=== PATIENT | male | born 1995 | race Caucasian/White ===

== ENCOUNTER 2020-12-08 18:04 | Emergency (ER) | payer SELFPAY ==
[~2020-12-08] VITALS: Ht 182.9 cm; Wt 70.3 kg
[2020-12-08 18:08] VITALS: BP 137/81
[2020-12-08] MEDS ORDERED: KETOROLAC TROMETH 60MG/2ML VIAL IM ONE (20:00)
== END 2020-12-08 20:10 | disposition home or self-care (01) ==
LOC: ER 18:04
DX: S16.1XXA Strain of muscle, fascia and tendon at neck level, initial encounter (principal); F12.10 Cannabis abuse, uncomplicated; X58.XXXA Exposure to other specified factors, initial encounter; Y93.89 Activity, other specified; Y92.89 Other specified places as the place of occurrence of the external cause; Y99.8 Other external cause status
CPT/HCPCS: 72040; 96372; 99283; J1885

== ENCOUNTER 2023-03-23 14:32 | Emergency (ER) | payer SELFPAY ==
[~2023-03-23] VITALS: Ht 185.4 cm; Wt 75.0 kg
[2023-03-23 15:06] VITALS: PULSE 66; RESP 18; O2SAT 98
[2023-03-23 15:21] LABS: Basophils # (auto) 0 10 ^3/uL (0-0.2); Basophils % (auto) 0.5 % (0.0-2.0); Eosinophils # (auto) 0.1 10 ^3/uL (0-0.8); Eosinophils % (auto) 1.7 % (0.0-7.0); Hematocrit 47.3 % (41.0-53.0); Hemoglobin 15.8 g/dL (13.5-17.5); Lymphocytes % (auto) 13.6 % (10.0-50.0); Mean Corpuscular Hemoglobin 29.9 pg (28.0-32.0); Mean Corpuscular Hgb Conc. 33.5 g/dL (32.0-36.0); Mean Corpuscular Volume 89.2 fL (80.0-100.0); Monocytes # (auto) 0.4 10 ^3/uL (0-1.3); Monocytes % (auto) 5.4 % (0.0-12.0); Neutrophils # (auto) 5.9 10 ^3/uL (1.6-8.6); Neutrophils % (auto) 78.8 % (37.0-80.0); Red Cell Distribution Width 12.8 % (11.8-14.3); White Blood Cell 7.5 10^3/uL (4.4-10.8)
[2023-03-23 15:41] LABS: Albumin 4.3 g/dL (3.4-5.0); Anion Gap 5 (5-15); Blood Urea Nitrogen 8 mg/dL (7-18); Calcium 8.8 mg/dL (8.5-10.1); Carbon Dioxide 23 mmol/L (21-32); Chloride 113 mmol/L (98-107); Glucose 98 mg/dL (74-106); Magnesium 3.1 mg/dL (1.6-2.6); Potassium 4.6 mmol/L (3.5-5.1); Sodium 141 mmol/L (136-145)
[2023-03-23 15:45] LABS: Alanine Aminotransferase 20 U/L (16-61); Alkaline Phosphatase 46 U/L (45-117); Aspartate Aminotransferase 14 U/L (15-37); BUN/Creatinine Ratio 8.3 (10.0-20.0); Bilirubin, Total 0.4 mg/dL (0.2-1.0); Blood Alcohol < 3.0 mg/dL (<10); GFR African American 120 mL/min; GFR Non-African American 99 mL/min; Total Protein 7.4 g/dL (6.4-8.2)
[2023-03-23 17:55] VITALS: BP 113/59; PULSE 94; RESP 18; TEMP 98; O2SAT 95
== END 2023-03-23 17:58 | disposition home or self-care (01) ==
LOC: EDBD 14:32 → ER 14:32
DX: R56.9 Unspecified convulsions (principal); F12.10 Cannabis abuse, uncomplicated
CPT/HCPCS: 36415; 70450; 80053; 80320; 83735; 85025

== ENCOUNTER 2023-04-04 14:20 | Inpatient (IN) | payer MEDICAID, OTHER ==
[~2023-04-04] VITALS: Ht 185.4 cm; Wt 84.2 kg
[2023-04-04] MEDS ORDERED: TETANUS-DIPTH-ACEL PERTUSSIS 0.5ML SYR Tdap IM ONE (15:00)
[2023-04-04] MEDS ORDERED: LORazepam 2MG/ML-1ML VIAL IV ONE ×2 (15:30)
[2023-04-04 15:33] LABS: Basophils # (auto) 0 10 ^3/uL (0-0.2); Basophils % (auto) 0.2 % (0.0-2.0); Eosinophils # (auto) 0.1 10 ^3/uL (0-0.8); Eosinophils % (auto) 0.8 % (0.0-7.0); Hematocrit 46.5 % (41.0-53.0); Hemoglobin 15.8 g/dL (13.5-17.5); Lymphocytes # (auto) 0.8 10 ^3/uL (0.4-5.4); Lymphocytes % (auto) 9.4 % (10.0-50.0); Mean Corpuscular Hemoglobin 29.9 pg (28.0-32.0); Mean Corpuscular Hgb Conc. 34.1 g/dL (32.0-36.0); Mean Corpuscular Volume 87.8 fL (80.0-100.0); Monocytes # (auto) 0.5 10 ^3/uL (0-1.3); Monocytes % (auto) 5.3 % (0.0-12.0); Neutrophils # (auto) 7.3 10 ^3/uL (1.6-8.6); Neutrophils % (auto) 84.3 % (37.0-80.0); Nucleated Red Blood Cells % 0.2 %; Red Blood Cells 5.29 10^6/uL (4.5-5.90); Red Cell Distribution Width 12.8 % (11.8-14.3); White Blood Cell 8.7 10^3/uL (4.4-10.8)
[2023-04-04 15:46] LABS: INR 1.06 (0.9-1.15); Prothrombin Time 11.1 sec (9.3-11.8)
[2023-04-04 15:50] LABS: Albumin 4.2 g/dL (3.4-5.0); Calcium 9.1 mg/dL (8.7-10.4); Potassium 4.7 mmol/L (3.5-5.1)
[2023-04-04 15:54] LABS: BUN/Creatinine Ratio 13.2 (10.0-20.0); Bilirubin, Total 0.6 mg/dL (0.2-1.0); Total Protein 7.1 g/dL (6.4-8.2)
[2023-04-04] MEDS ORDERED: NITROGLYCERIN 0.4 MG SL TAB SL PRN (16:45)
[2023-04-04] MEDS ORDERED: MORPHINE SULFATE INJ 2 MG/ml SYRG IV PRN (16:45)
[2023-04-04] MEDS ORDERED: LORazepam 2MG/ML-1ML VIAL IV PRN (18:15)
[2023-04-04] MEDS ORDERED: ASPirin-EC 325mg tab PO ONE (18:15)
[2023-04-04 20:17] VITALS: PULSE 92; RESP 18; O2SAT 95
[2023-04-04] MEDS: ATORVASTATIN 20 MG TAB PO SCH (23:23)
[2023-04-05 00:20] LABS: Urine Bacteria NONE SEEN /hpf (None Seen); Urine Blood Negative /uL (Negative); Urine Clarity HAZY (Clear); Urine Color Yellow (Yellow); Urine Protein, UAD Negative (Negative); Urine Specific Gravity 1.016 (1.001-1.035); Urine Urobilinogen Normal (Negative); Urine WBC 1 /hpf (0 - 3); Urine pH 5.5 (5.0-8.0)
[2023-04-05 01:06] LABS: Alcohol, Urine < 3.0 mg/dL (0-10); Amphetamine Screen, Urine NEGATIVE (NEGATIVE); Cannabinoid Screen, Urine POSITIVE (NEGATIVE)
[2023-04-05 01:13] LABS: Barbiturate Scree,Urine NEGATIVE (NEGATIVE); Benzodiazephine Screen, Urine NEGATIVE (NEGATIVE); Cocaine Screen, Urine NEGATIVE (NEGATIVE); Opiate Scree,Urine NEGATIVE (NEGATIVE); Phencyclidine Screen, Urine NEGATIVE (NEGATIVE)
[2023-04-05] MEDS ORDERED: ACETAMINOPHEN 325 MG TAB PO ONE (02:15)
[2023-04-05 06:11] LABS: Basophils # (auto) 0 10 ^3/uL (0-0.2); Basophils % (auto) 0.4 % (0.0-2.0); Eosinophils # (auto) 0.2 10 ^3/uL (0-0.8); Eosinophils % (auto) 1.9 % (0.0-7.0); Hemoglobin 15.5 g/dL (13.5-17.5); Lymphocytes % (auto) 24.5 % (10.0-50.0); Mean Corpuscular Hemoglobin 30.3 pg (28.0-32.0); Mean Corpuscular Hgb Conc. 34.5 g/dL (32.0-36.0); Mean Corpuscular Volume 87.8 fL (80.0-100.0); Monocytes # (auto) 0.7 10 ^3/uL (0-1.3); Monocytes % (auto) 9.3 % (0.0-12.0); Neutrophils # (auto) 5.1 10 ^3/uL (1.6-8.6); Neutrophils % (auto) 63.9 % (37.0-80.0); Nucleated Red Blood Cells % 0.1 %; Red Blood Cells 5.12 10^6/uL (4.5-5.90); Red Cell Distribution Width 12.8 % (11.8-14.3)
[2023-04-05 06:43] LABS: Potassium 3.9 mmol/L (3.5-5.1)
[2023-04-05 06:49] LABS: Albumin 4.1 g/dL (3.4-5.0); BUN/Creatinine Ratio 15.9 (10.0-20.0)
[2023-04-05 06:52] LABS: Total Protein 6.9 g/dL (6.4-8.2)
[2023-04-05 08:58] VITALS: PULSE 78; RESP 22; O2SAT 96
[2023-04-05 09:08] LABS: Bilirubin, Total 1.7 mg/dL (0.2-1.0)
[2023-04-05] MEDS ORDERED: LORazepam 2MG/ML-1ML VIAL IV PRN (09:30)
[2023-04-05] MEDS: ENOXAPARIN SOD 40 MG/0.4 ML SYRINGE SC SCH (10:52)
[2023-04-05] MEDS: ASPirin-EC 81 mg tab PO SCH (10:52)
[2023-04-05] MEDS ORDERED: ONDANSETRON HCL 4 MG/2 ML VIAL IV PRN (14:30)
[2023-04-05] MEDS: HYDROcodone-ACET 5/325MG TAB PO PRN ×2 (14:45→20:35)
[2023-04-05 16:30] VITALS: BP 135/85; PULSE 90; RESP 21; TEMP 98.2; O2SAT 95
[2023-04-05 16:48] VITALS: PULSE 90; RESP 20; O2SAT 95
[2023-04-05 20:00] VITALS: PULSE 60; PULSE 74; RESP 18; O2SAT 97
[2023-04-05 21:00] VITALS: BP 139/79; PULSE 86; RESP 18; TEMP 98; O2SAT 94
[2023-04-05] MEDS: ATORVASTATIN 20 MG TAB PO SCH (21:21)
[2023-04-06] VITALS (7 sets, daily range): BP systolic 127–140; BP diastolic 78–83; PULSE 64–90; RESP 16–18; TEMP 97.6–98.1; O2SAT 2–97
[2023-04-06 06:18] LABS: Basophils # (auto) 0 10 ^3/uL (0-0.2); Basophils % (auto) 0.4 % (0.0-2.0); Eosinophils # (auto) 0.2 10 ^3/uL (0-0.8); Eosinophils % (auto) 3.6 % (0.0-7.0); Hematocrit 43.2 % (41.0-53.0); Hemoglobin 14.8 g/dL (13.5-17.5); Lymphocytes # (auto) 1.6 10 ^3/uL (0.4-5.4); Lymphocytes % (auto) 26.6 % (10.0-50.0); Mean Corpuscular Hemoglobin 30.1 pg (28.0-32.0); Mean Corpuscular Hgb Conc. 34.3 g/dL (32.0-36.0); Mean Corpuscular Volume 87.8 fL (80.0-100.0); Monocytes # (auto) 0.6 10 ^3/uL (0-1.3); Monocytes % (auto) 10.9 % (0.0-12.0); Neutrophils # (auto) 3.5 10 ^3/uL (1.6-8.6); Neutrophils % (auto) 58.5 % (37.0-80.0); Nucleated Red Blood Cells % 0.1 %; Red Blood Cells 4.92 10^6/uL (4.5-5.90); Red Cell Distribution Width 12.8 % (11.8-14.3); White Blood Cell 5.9 10^3/uL (4.4-10.8)
[2023-04-06 06:31] LABS: Chloride 104 mmol/L (98-107); Potassium 3.7 mmol/L (3.5-5.1); Sodium 139 mmol/L (136-145)
[2023-04-06 06:32] LABS: Anion Gap 7.6 (5-15); Calcium 9.4 mg/dL (8.7-10.4); Carbon Dioxide 27.4 mmol/L (20-30)
[2023-04-06 06:37] LABS: BUN/Creatinine Ratio 9.6 (10.0-20.0); Blood Urea Nitrogen 7 mg/dL (9-23); Glucose 91 mg/dL (74-106)
[2023-04-06] MEDS: ENOXAPARIN SOD 40 MG/0.4 ML SYRINGE SC SCH (08:39)
[2023-04-06] MEDS: ASPirin-EC 81 mg tab PO SCH (08:39)
[2023-04-06] MEDS: HYDROcodone-ACET 5/325MG TAB PO PRN ×2 (08:40→20:09)
[2023-04-06] MEDS: ATORVASTATIN 20 MG TAB PO SCH (21:27)
[2023-04-07 05:05] VITALS: BP 130/88; PULSE 80; RESP 16; TEMP 97.3; O2SAT 96
[2023-04-07 05:54] LABS: Basophils # (auto) 0.1 10 ^3/uL (0-0.2); Basophils % (auto) 0.9 % (0.0-2.0); Eosinophils # (auto) 0.3 10 ^3/uL (0-0.8); Hematocrit 43.3 % (41.0-53.0); Hemoglobin 14.8 g/dL (13.5-17.5); Lymphocytes # (auto) 1.8 10 ^3/uL (0.4-5.4); Lymphocytes % (auto) 30.3 % (10.0-50.0); Mean Corpuscular Hgb Conc. 34.1 g/dL (32.0-36.0); Monocytes # (auto) 0.7 10 ^3/uL (0-1.3); Monocytes % (auto) 11.4 % (0.0-12.0); Neutrophils % (auto) 52.4 % (37.0-80.0); Nucleated Red Blood Cells % 0.2 %; Red Blood Cells 4.93 10^6/uL (4.5-5.90); Red Cell Distribution Width 12.6 % (11.8-14.3); White Blood Cell 5.8 10^3/uL (4.4-10.8)
[2023-04-07 06:02] LABS: Chloride 105 mmol/L (98-107); Potassium 3.8 mmol/L (3.5-5.1); Sodium 140 mmol/L (136-145)
[2023-04-07 06:04] LABS: Calcium 9.6 mg/dL (8.7-10.4)
[2023-04-07 06:08] LABS: BUN/Creatinine Ratio 6.3 (10.0-20.0); Blood Urea Nitrogen 5 mg/dL (9-23); Glucose 96 mg/dL (74-106)
[2023-04-07 08:00] VITALS: PULSE 107
[2023-04-07 08:48] VITALS: BP 118/86; PULSE 74; RESP 18; TEMP 98.2; O2SAT 98
[2023-04-07] MEDS: HYDROcodone-ACET 5/325MG TAB PO PRN (09:36)
[2023-04-07] MEDS: ASPirin-EC 81 mg tab PO SCH (09:36)
[2023-04-07] MEDS: ENOXAPARIN SOD 40 MG/0.4 ML SYRINGE SC SCH (09:36)
[2023-04-07] MEDS ORDERED: LEVE500T40 PO ×2 (10:25→11:17)
[2023-04-07 12:58] VITALS: BP 134/74; PULSE 80; RESP 18; TEMP 98.3; O2SAT 100
== END 2023-04-07 17:07 | disposition home or self-care (01) | DRG 53 ==
LOC: EDBD 14:20 → ER 14:20 → TELE 17:11 → TELE-CENTR 04-05 16:26
PROVIDERS: ADMIT Internal Medicine; ATTEND Student in an Organized Health Care Education/Training Program
PROC: 0HQ1XZZ Repair Face Skin, External Approach (ICD-10-PCS; principal; 2023-04-04)
DX: G40.409 Other generalized epilepsy and epileptic syndromes, not intractable, without status epilepticus (principal); I31.9 Disease of pericardium, unspecified; F12.10 Cannabis abuse, uncomplicated; S01.81XA Laceration without foreign body of other part of head, initial encounter; W18.39XA Other fall on same level, initial encounter; Y93.89 Activity, other specified; Z79.899 Other long term (current) drug therapy; Z82.0 Family history of epilepsy and other diseases of the nervous system; Z82.49 Family history of ischemic heart disease and other diseases of the circulatory system; Y92.89 Other specified places as the place of occurrence of the external cause; Y99.8 Other external cause status
CPT/HCPCS: 12011; 36415; 70450; 70551; 80048; 80053; 80061; 80307; 81001; 84443; 84484; 85025; 85610; 86141; 90715; 93005; 93306; 95819; G0378; J2405; J7060

== ENCOUNTER 2024-03-01 13:12 | Emergency (ER) | payer MEDICAID ==
[~2024-03-01] VITALS: Ht 182.9 cm; Wt 75.0 kg
[~2024-03-01 13:12] MED LIST: LEVE500T40 PO
[2024-03-01 14:00] VITALS: PULSE 87; RESP 19; O2SAT 95
[2024-03-01 15:38] LABS: Basophils # (auto) 0 10 ^3/uL (0-0.2); Basophils % (auto) 0.2 % (0.0-2.0); Eosinophils # (auto) 0 10 ^3/uL (0-0.8); Eosinophils % (auto) 0.3 % (0.0-7.0); Hematocrit 43.2 % (41.0-53.0); Hemoglobin 14.6 g/dL (13.5-17.5); Lymphocytes # (auto) 0.9 10 ^3/uL (0.4-5.4); Lymphocytes % (auto) 7.6 % (10.0-50.0); Mean Corpuscular Hemoglobin 29.8 pg (28.0-32.0); Mean Corpuscular Hgb Conc. 33.7 g/dL (32.0-36.0); Mean Corpuscular Volume 88.6 fL (80.0-100.0); Monocytes # (auto) 0.6 10 ^3/uL (0-1.3); Monocytes % (auto) 5.1 % (0.0-12.0); Neutrophils # (auto) 10.6 10 ^3/uL (1.6-8.6); Neutrophils % (auto) 86.8 % (37.0-80.0); Nucleated Red Blood Cells % 0.1 %; Red Blood Cells 4.88 10^6/uL (4.5-5.90); Red Cell Distribution Width 12.7 % (11.8-14.3); White Blood Cell 12.2 10^3/uL (4.4-10.8)
[2024-03-01] MEDS: levETIRAcetam 1000 mg/100ml 100 ML IV ONE (15:53)
[2024-03-01] MEDS: SODIUM CHLORIDE 0.9% 1,000 ML IV ONE (15:53)
[2024-03-01 15:59] LABS: Alanine Aminotransferase 31 U/L (7-40); Alkaline Phosphatase 53 U/L (46-116); Anion Gap 8 (5-15); Aspartate Aminotransferase 20 U/L (13-40); BUN/Creatinine Ratio 9.2 (10.0-20.0); Blood Urea Nitrogen 8 mg/dL (9-23); Calcium 9.9 mg/dL (8.7-10.4); Carbon Dioxide 26 mmol/L (20-30); Chloride 108 mmol/L (98-107); Glucose 92 mg/dL (74-106); Potassium 4.3 mmol/L (3.5-5.1); Sodium 142 mmol/L (136-145)
[2024-03-01 16:00] LABS: Albumin 4.7 g/dL (3.2-4.8); Bilirubin, Total 0.6 mg/dL (0.2-1.0); Total Protein 6.6 g/dL (5.7-8.2)
[2024-03-01] MEDS: ONDANSETRON HCL 4 MG/2 ML VIAL IV ONE (16:56)
[2024-03-01] MEDS: MORPHINE SULFATE 4 MG/ML SYR/VIAL IV ONE (16:56)
[2024-03-01] MEDS: LIDOCAINE 1% HCL (LOCAL ANESTH.) INJ 20ML MDV IJ ONE (17:36)
[2024-03-01] MEDS ORDERED: ACET-1304 PO (17:39)
[2024-03-01] MEDS ORDERED: KEP500T PO (17:39)
[2024-03-01] MEDS: TETANUS-DIPTH-ACEL PERTUSSIS 0.5ML SYR Tdap IM ONE (17:46)
[2024-03-01 18:00] VITALS: BP 113/65; PULSE 82; RESP 12; TEMP 98.4; O2SAT 98
== END 2024-03-01 18:14 | disposition home or self-care (01) ==
LOC: EDBD 13:12 → EDUNIT# 13:12 → ER 13:12
DX: S01.81XA Laceration without foreign body of other part of head, initial encounter (principal); R56.9 Unspecified convulsions; F15.90 Other stimulant use, unspecified, uncomplicated; Z87.891 Personal history of nicotine dependence; X58.XXXA Exposure to other specified factors, initial encounter; Y93.89 Activity, other specified; Y92.89 Other specified places as the place of occurrence of the external cause; Y99.8 Other external cause status
CPT/HCPCS: 12011; 36415; 70450; 72125; 80053; 85025; 90471; 90715; 96365; 96375; 99285; J1953; J2270; J2405